=== PATIENT | male | born 1965 | race Hispanic/Latino ===

== ENCOUNTER → 2017-07-19 | Outpatient (CLI) | payer OTHER ==
--- NOTE | 2017-07-19 11:07 | Diagnostic Imaging Report ---
PROCEDURE:ABDOMINAL ULTRASOUND COMPARISON:None. INDICATIONS:Abdominal Pain FINDINGS: Liver: Measures 14.7 cm. Increased hepatic parenchymal echogenicity. No focal mass. Main portal vein: Measures 10 mm with normal hepatopedal flow. Gallbladder: No stones or gallbladder wall thickening. Common Bile Duct: Measures 3 mm with no echogenic filling defect. Sonographic Parks's sign: Negative Right kidney: Measures 10.1 x 4.5 x 5.4 cm. No solid or cystic mass, echogenic calculi, or hydronephrosis. Normal parenchymal echogenicity. Left kidney: Measures 10.5 x 5.4 x 5.6 cm. No solid or cystic mass, echogenic calculi, or hydronephrosis. Normal parenchymal echogenicity. Spleen: Measures 10.6 x 4.5 x 4.6 cm. No mass. Pancreas: The visualized portions of the pancreas are normal. Inferior vena cava: Normal. Aorta: Normal. Ascites: None. CONCLUSION: 1. No acute sonographic abnormality. 2. Increased echogenicity of the liver. Jose Gomez D.O. Dictated by: Jose Gomez D.O. on 07/19/2017 at 11:07 Electronically approved by: Jose Gomez D.O. on 07/19/2017 at 11:07
== END ==
LOC: US 07:59
PROVIDERS: ATTEND Family Medicine
DX: R10.9 Unspecified abdominal pain (principal)
CPT/HCPCS: 76700

== ENCOUNTER 2021-12-27 05:37 | Inpatient (IN) | payer BC, OTHER ==
[~2021-12-27] VITALS: Ht 180.3 cm; Wt 90.7 kg
[2021-12-27] VITALS (7 sets, daily range): BP systolic 129–149; BP diastolic 81–87
[2021-12-27] MEDS ORDERED: KETOROLAC TROMETHAMINE 30 MG/ML VIAL IV STA (05:50)
[2021-12-27 06:02] LABS: BASOPHILS % 0.3 % (0.0-1.0); EOSINOPHILS # (AUTO) 0.1 (0.0-0.4); EOSINOPHILS % 0.6 % (0.0-6.0); HEMOGLOBIN 16.5 g/dL (14.0-18.0); LYMPHOCYTES # (AUTO) 1.7 (1.0-3.2); LYMPHOCYTES % 11.8 % (18.0-39.1); MEAN CORPUSCULAR HEMOGLOBIN 30.4 pg (28-32); MEAN CORPUSCULAR HGB CONC 35.1 g/dL (31-35); MEAN CORPUSCULAR VOLUME 86.6 fL (81-99); MONOCYTES # (AUTO) 1.3 (0.2-0.8); MONOCYTES % 9.1 % (4.4-11.3); NEUTROPHILS # (AUTO) 11.1 (2.1-6.9); NEUTROPHILS % 77.8 % (38.7-80.0); PLATELET COUNT 198 x10e3/uL (140-360); RED BLOOD COUNT 5.43 x10e6/uL (4.3-5.7); RED CELL DISTRIBUTION WIDTH 12.5 % (11.7-14.4)
[2021-12-27 06:40] LABS: ALBUMIN 4.1 g/dL (3.5-5.0); ALBUMIN/GLOBULIN RATIO 1.1 (0.8-2.0); ANION GAP 14.9 mmol/L (8-16); CALCIUM 9.1 mg/dL (8.4-10.2); CREATININE, SERUM 1.15 mg/dL (0.72-1.25); POTASSIUM 3.9 mmol/L (3.5-5.1)
[2021-12-27 06:48] LABS: CLARITY,URINE CLEAR (CLEAR); COLOR,URINE YELLOW (YELLOW)
[2021-12-27 06:49] LABS: KETONES,URINE NEGATIVE (NEGATIVE); LEUKOCYTE ESTERASE ,URINE NEGATIVE (NEGATIVE); NITRITE,URINE NEGATIVE (NEGATIVE); PROTEIN,URINE DIPSTICK NEGATIVE (NEGATIVE); URINE UROBILINOGEN 0.2 mg/dL (0.2 - 1)
[2021-12-27] MEDS ORDERED: IOPAMIDOL 370 MG/ML 100 ML INFUS..BTL INJ ONE (06:59)
[2021-12-27 07:01] LABS: BACTERIA,URINE FEW /HPF; EPITHELIAL CELLS,URINE RARE /LPF; RBC,URINE 0-5 /HPF (0-5); WBC,URINE (MAN) 0-5 /HPF (0-5)
[2021-12-27 07:02] LABS: MUCUS,URINE MODERATE (RARE)
[2021-12-27] MEDS ORDERED: KETOROLAC TROMETHAMINE 30 MG/ML VIAL IV PRN (08:15)
[2021-12-27] MEDS ORDERED: ONDANSETRON HCL INJ 2MG/ML 2ML 2 MG/ML VIAL IV PRN (08:15)
[2021-12-27] MEDS: SODIUM CHLORIDE 0.9% 1000ML 1,000 ML IV SCH ×2 (09:00→17:36)
[2021-12-27] MEDS: Morphine 4mg INJECTION 4 MG/ML INJ IV PRN ×2 (13:18→17:40)
[2021-12-28] VITALS: BP 126/77
[2021-12-28] MEDS: Morphine 4mg INJECTION 4 MG/ML INJ IV PRN ×4 (00:26→17:51)
[2021-12-28 04:00] VITALS: BP 127/81
[2021-12-28 04:44] LABS: BASOPHILS % 0.3 % (0.0-1.0); EOSINOPHILS # (AUTO) 0.1 (0.0-0.4); HEMATOCRIT 41.2 % (38.2-49.6); HEMOGLOBIN 13.9 g/dL (14.0-18.0); LYMPHOCYTES # (AUTO) 1.3 (1.0-3.2); LYMPHOCYTES % 12.6 % (18.0-39.1); MEAN CORPUSCULAR HEMOGLOBIN 30.5 pg (28-32); MEAN CORPUSCULAR HGB CONC 33.7 g/dL (31-35); MEAN CORPUSCULAR VOLUME 90.5 fL (81-99); MONOCYTES # (AUTO) 0.9 (0.2-0.8); MONOCYTES % 8.9 % (4.4-11.3); NEUTROPHILS # (AUTO) 8.1 (2.1-6.9); NEUTROPHILS % 76.9 % (38.7-80.0); PLATELET COUNT 153 x10e3/uL (140-360); RED BLOOD COUNT 4.55 x10e6/uL (4.3-5.7); RED CELL DISTRIBUTION WIDTH 12.3 % (11.7-14.4)
[2021-12-28 05:04] LABS: ALBUMIN 3.2 g/dL (3.5-5.0); ALBUMIN/GLOBULIN RATIO 0.9 (0.8-2.0); ANION GAP 11.8 mmol/L (8-16); CALCIUM 8.1 mg/dL (8.4-10.2); CREATININE, SERUM 1.23 mg/dL (0.72-1.25); POTASSIUM 3.8 mmol/L (3.5-5.1)
[2021-12-28] MEDS: SODIUM CHLORIDE 0.9% 1000ML 1,000 ML IV SCH ×2 (05:20→11:25)
[2021-12-28 08:00] VITALS: BP 128/82
[2021-12-28] MEDS ORDERED: FINASTERIDE5 MG PO (11:23)
[2021-12-28] MEDS ORDERED: FLOMAX0.4 MG PO (11:23)
[2021-12-28 12:00] VITALS: BP 123/81
[2021-12-28 17:00] VITALS: BP 126/75
[2021-12-28 20:00] VITALS: BP 122/81
[2021-12-28] MEDS: SIMETHICONE 80 MG CHEW PO SCH (22:41)
[2021-12-28] MEDS: HYDROMORPHONE 1MG/1ML INJ IV PRN (22:41)
[2021-12-29] VITALS (8 sets, daily range): BP systolic 110–142; BP diastolic 66–93
[2021-12-29] MEDS: SODIUM CHLORIDE 0.9% 1000ML 1,000 ML IV SCH ×2 (00:46→10:46)
[2021-12-29] MEDS: HYDROMORPHONE 1MG/1ML INJ IV PRN ×4 (04:33→22:24)
[2021-12-29] MEDS: SIMETHICONE 80 MG CHEW PO SCH ×3 (08:44→21:45)
[2021-12-29] MEDS: TAMSULOSIN HCL 0.4 MG CAP PO SCH (08:45)
[2021-12-29] MEDS: FINASTERIDE 5 MG TAB PO SCH (08:45)
[2021-12-29] MEDS: KETOROLAC TROMETHAMINE 30 MG/ML VIAL IV PRN (12:27)
[2021-12-30] VITALS: BP 147/91
[2021-12-30] MEDS: KETOROLAC TROMETHAMINE 30 MG/ML VIAL IV PRN (01:13)
[2021-12-30] MEDS: SODIUM CHLORIDE 0.9% 1000ML 1,000 ML IV SCH ×2 (01:14→07:00)
[2021-12-30 04:00] VITALS: BP 140/9
[2021-12-30] MEDS: HYDROMORPHONE 1MG/1ML INJ IV PRN ×2 (05:27→11:42)
[2021-12-30 08:00] VITALS: BP 118/86
[2021-12-30 08:36] LABS: BASOPHILS % 0.2 % (0.0-1.0); EOSINOPHILS # (AUTO) 0.2 (0.0-0.4); EOSINOPHILS % 4.2 % (0.0-6.0); HEMATOCRIT 40.6 % (38.2-49.6); LYMPHOCYTES # (AUTO) 1.1 (1.0-3.2); LYMPHOCYTES % 19.4 % (18.0-39.1); MEAN CORPUSCULAR HEMOGLOBIN 30.2 pg (28-32); MEAN CORPUSCULAR HGB CONC 34.5 g/dL (31-35); MEAN CORPUSCULAR VOLUME 87.7 fL (81-99); MONOCYTES # (AUTO) 0.4 (0.2-0.8); MONOCYTES % 7.6 % (4.4-11.3); NEUTROPHILS # (AUTO) 3.8 (2.1-6.9); NEUTROPHILS % 68.4 % (38.7-80.0); PLATELET COUNT 206 x10e3/uL (140-360); RED BLOOD COUNT 4.63 x10e6/uL (4.3-5.7); RED CELL DISTRIBUTION WIDTH 11.7 % (11.7-14.4)
[2021-12-30 09:07] VITALS: BP 118/86
[2021-12-30 09:12] LABS: ALBUMIN 3.2 g/dL (3.5-5.0); ALBUMIN/GLOBULIN RATIO 0.9 (0.8-2.0); ANION GAP 11.8 mmol/L (8-16); CALCIUM 8.6 mg/dL (8.4-10.2); CREATININE, SERUM 0.95 mg/dL (0.72-1.25); POTASSIUM 3.8 mmol/L (3.5-5.1)
[2021-12-30 09:16] VITALS: BP 118/86
[2021-12-30] MEDS: FINASTERIDE 5 MG TAB PO SCH (09:23)
[2021-12-30] MEDS: SIMETHICONE 80 MG CHEW PO SCH (09:23)
[2021-12-30] MEDS: TAMSULOSIN HCL 0.4 MG CAP PO SCH (09:23)
[2021-12-30 12:18] VITALS: BP 143/88
== END 2021-12-30 13:30 | disposition home or self-care (01) | DRG 392 ==
LOC: ER 05:40 → ERHOLD 08:07 → MED/SURG 12:01 → OBSVTOIN 12-29 08:39
DX: K57.32 Diverticulitis of large intestine without perforation or abscess without bleeding (principal); K52.9 Noninfective gastroenteritis and colitis, unspecified; N40.0 Benign prostatic hyperplasia without lower urinary tract symptoms; E78.5 Hyperlipidemia, unspecified; Z20.822 Contact with and (suspected) exposure to COVID-19
CPT/HCPCS: 0223U; 36415; 74022; 74177; 80053; 81001; 83605; 83690; 85025; 87040; 99251; 99285; G0378; J1170; J1885; J2270; J2405; J2543; J7030; Q9967